=== PATIENT | male | born 1990 | race Caucasian/White ===

== ENCOUNTER 2019-08-24 03:46 | Emergency (ER) | payer OTHER, SELFPAY ==
[2019-08-24 03:56] VITALS: BP 130/93; PULSE 79; RESP 14; TEMP 36.2; O2SAT 98; BMI 26.6
--- NOTE | 2019-08-24 04:12 | ED.EPISTAXIS ---
HPI - Epistaxis General Chief complaint: Nasal Problem Stated complaint: nose bleed Time Seen by Provider: 08/24/19 04:11 Source: patient Mode of arrival: Family Vehicle History of Present Illness HPI Narrative: 29-year-old otherwise healthy gentleman presents with epistaxis for greater than an hour. Mostly out of the left nostril but enough that it is dripping down the back of his throat and leaking around the posterior septum and coming up the right side as well. He describes previous episodes for much of his life. Most of them have ended within 15-20 minutes. He has no reported hematologic abnormalities, hypertension or vascular abnormalities. Denies any recent colds, nasal irritation, increased ?picking? and denies any nasal irritants in the form of recreational drugs such as cocaine methamphetamine or heroin. Related Data Allergies Allergy/AdvReac Type Severity Reaction Status Date / Time amoxicillin Allergy Verified 08/24/19 03:55 Review of Systems Review of Systems Narrative: Pertinent positive and negative findings as per HPI Remainder of review of systems is otherwise unremarkable for Constitutional: Fevers, chills, weakness ENT: No sore throat, neck pain, ear pain CV: Chest pain, palpitations, dyspnea on exertion Respiratory: Cough, wheeze, dyspnea GI: Nausea, vomiting, diarrhea, change in bowel habits, black or bloody stools Heme: Easy bruising or bleeding Patient History Medical History (Updated 08/24/19 @ 05:02 by Gmea Zepeda MD) Epistaxis (Acute) Social History Smoking Status: Never smoker Smoking Status: Never smoker alcohol intake frequency: holidays/special occasions only Substance Use Type: does not use Exam Narrative Exam Narrative: General: Alert appropriate in no acute distress ENT: Crusting blood at the right nares. No obvious source of bleeding on exam. Oropharynx is unremarkable. Cardiac: Regular rate and rhythm no murmurs Respiratory: Able to speak in full sentences, no obvious respiratory distress, no wheezing no crackles Skin: No obvious rashes, warm and dry Neurologic: Grossly intact no obvious asymmetries or abnormalities Psych, appropriate insight and affect, cooperative Initial Vital Signs Initial Vital Signs: Vital Signs Temperature 97.2 F L 08/24/19 03:56 Pulse Rate 79 08/24/19 03:56 Respiratory Rate 14 08/24/19 03:56 Blood Pressure 130/93 H 08/24/19 03:56 Pulse Oximetry 98 08/24/19 03:56 Course Orders Ordered: Discontinued Medications Oxymetazoline HCl (Afrin) 2 sprays NASAL NOW ONE Stop: 08/24/19 04:16 Last Admin: 08/24/19 04:18 Dose: 2 sprays Documented by: BENJI Vital Signs Vital signs: Vital Signs - 8 hr 08/24/19 03:56 Temperature 97.2 F L Pulse Rate 79 Respiratory Rate 14 Blood Pressure 130/93 H Pulse Oximetry 98 MDM - Epistaxis MDM Narrative Medical decision making narrative: Uncomplicated epistaxis with no concerning risk factors. Has resolved with continued pressure. Patient is safe for home discharge Discharge Plan Departure Patient Disposition: Home Clinical Impression: Epistaxis Instructions: DI for Nosebleed Activity Restrictions/Additional Instructions: Thank you for coming in today Your nose bleed has stopped spontaneously. At this point there is no indication of significant pathology behind the nose bleeds such as a hematologic abnormality, vascular abnormality or severe hypertension. Should this happen again, it would be safe to use Afrin nose spray and nose clamps for a longer period at home and continues you will need to come to the emergency department. If you continue to have smaller nose bleeds it would be appropriate follow-up with ear nose and throat physicians to see if they have any suggestions for for venting future nosebleeds. In the meantime using any nasal lubricants such as nasal saline to keep the mucosal membranes moist will help avoid future difficulties with bleeding. I wish you the best. Welcome home from [facility].
[2019-08-24] MEDS: OXYMETAZOLINE NASAL SPRAY 30 ML 2 SPRAYS NASAL (04:18)
== END 2019-08-24 05:06 | disposition home or self-care (01) ==
PROVIDERS: Emergency Provider Emergency Medicine
DX: R04.0 Epistaxis (principal)
CPT/HCPCS: 99282; 99283

== ENCOUNTER 2020-06-26 07:58 | Emergency (ER) | payer OTHER, SELFPAY ==
[2020-06-26 08:07] VITALS: BP 128/83; PULSE 60; RESP 18; TEMP 36.5; O2SAT 98; BMI 26.6
--- NOTE | 2020-06-26 08:25 | PC.NURSE ---
c/o equilibrium being off intermittently
--- NOTE | 2020-06-26 08:39 | ED_ITS ---
HPI - Dizziness General Chief Complaint: Dizziness Stated Complaint: hot flashes/dizzy/nausea x2 days Time Seen by Provider: 06/26/20 08:12 Source: patient Mode of arrival: Family Vehicle Limitations: no limitations History of Present Illness HPI Narrative: Patient is a 30-year-old male who is the [employer] presenting with dizziness. He says the last 2 nights every time he lays down to go to sleep he is dizzy. Last night he was only able to lay on his right side. During the day however it resolves. He says yesterday he was even able to do a stimulation without any difficulty but last night he had hot flash sweats felt nauseous and was extremely dizzy. He was unable to find a comfortable position and go to sleep. He denies any chest pain palpitations or passing out. MD complaint: dizziness Timing: sudden onset Description: sense of movement Related Data Previous Rx's Medication Instructions Recorded meclizine 25 mg PO TID PRN #10 tab 06/26/20 Allergies Allergy/AdvReac Type Severity Reaction Status Date / Time amoxicillin Allergy Verified 08/24/19 03:55 Review of Systems Review of Systems Narrative: GENERAL: Denies chills, fatigue, malaise, fever, sweats, travel HEENT: Denies sinus pain, ear pain, sore throat, difficulty swallowing, neck pain RESPIRATORY: Denies dyspnea, cough, wheezing, hemoptysis, sputum. CARDIOVASCULAR: Denies chest pain, palpitations, orthopnea, edema GASTROINTESTINAL: Denies nausea, vomiting, abdominal pain, diarrhea, constipation, melena. : Denies dysuria, frequency, incontinence, hematuria, urinary retention, flank pain. MUSCULOSKELETAL: Denies weakness, joint pain, or bony pain SKIN: No rash, no erythema, no pruritus NEUROLOGIC: See HPI PSYCHIATRIC: No concerning psychosocial issues. 12 point review of systems is negative except for those stated above and HPI Patient History Medical History Epistaxis Social History Smoking Status: Never smoker Smoking Status: Never smoker alcohol intake frequency: holidays/special occasions only Substance Use Type: does not use Exam Initial Vital Signs Initial Vital Signs: Vital Signs Temperature 97.7 F 06/26/20 08:07 Pulse Rate 60 06/26/20 08:07 Respiratory Rate 18 06/26/20 08:07 Blood Pressure 128/83 06/26/20 08:07 Pulse Oximetry 98 06/26/20 08:07 GENERAL: Well-appearing, well-nourished and in no acute distress. HEENT: Head atraumatic,EOMI, pupils reactive, face symmetric, moist mucous membranes CARDIOVASCULAR: Regular rate and rhythm without murmurs, rubs or gallops. RESPIRATORY: Breath sounds equal bilaterally, no wheezes rales or rhonchi. ABDOMEN: Soft, nontender. Normoactive bowel sounds all 4 quadrants. No guarding or rebound. EXTREMITIES: Normal range of motion, no clubbing or edema. Neurovascularly intact NEUROLOGICAL: Alert and oriented x4.Normal gait and speech. Cranial nerves II through XII grossly intact. Good [id number], good [id number], strength equal bilaterally, no dysarthria or aphasia, sensation in tact to soft touch bilaterally, no visual changes, no facial droop SKIN: Warm, dry, no laceration, no petechiae, no rashes or lesions. Scores NIH Stroke Scale Level of Conciousness: Alert, keenly responsive Ask month/age: Answers both questions correctly. Open/close eyes, close hand: Performs both tasks correctly Best gaze horizontal: Normal Visual bates: No visual loss Facial palsy: Normal symetrical movement Left arm drift: No drift for full 10 sec Right arm drift: No drift for full 10 sec Left leg drift: No drift for full 5 sec Right leg drift: No drift for full 5 sec Limb ataxia: Absent Sensory on face/arms/legs: Normal, no sensory loss Best language: No aphasia, normal Dysarthria: Normal Extinction or inattention: No abnormality Total NIH Stroke scale score: 0 Course Orders Ordered: ED Orders 06/26/20 08:39 EKG-12 Lead Stat 06/26/20 08:55 Complete Blood Count AUTO DIFF Stat Comprehensive Metabolic Panel Stat Vital Signs Vital signs: Vital Signs - 8 hr 06/26/20 08:07 06/26/20 09:45 Temperature 97.7 F Pulse Rate 60 58 L Respiratory Rate 18 18 Blood Pressure 128/83 124/84 Pulse Oximetry 98 99 MDM - Dizziness Lab Data Attestation: I reviewed the patient's lab results. Result diagrams: 06/26/20 08:55 06/26/20 08:55 Labs: Lab Results 06/26/20 06/26/20 Range/Units 08:55 08:55 WBC 5.2 (4.5-11.0) X10^3/uL RBC 5.04 (4.5-5.9) X10^6/uL Hgb 15.6 (13.5-17.5) g/dL Hct 44.2 (41-53) % MCV 87.8 (80-100) fL MCH 30.9 (26-34) PG MCHC 35.2 (30-36) % RDW 13.3 (11.6-14.8) % Plt Count 211 (150-400) X10^3/uL Neut % (Auto) 55.5 (50-75) % Lymph % (Auto) 32.0 (25-40) % Benton % (Auto) 5.3 (3-14) % Eos % (Auto) 6.6 H (2-4) % Baso % (Auto) 0.6 (0-2) % Neut # (Auto) 2900 (8162-9551) /uL Lymph # (Auto) 1700 (1180-3617) /uL Benton # (Auto) 300 (0-900) /uL Eos # (Auto) 300 (0-450) /uL Baso # (Auto) 0 (0-100) /uL Sodium 139 (137-145) mmol/L Potassium 4.6 (3.4-5.1) mmol/L Chloride 100 (98-107) mmol/L Carbon Dioxide 31 (22-32) mmol/L BUN 12 (9-20) mg/dL Creatinine 0.78 (0.66-1.25) mg/dL Estimated GFR > 60.0 (>60) mL/min BUN/Creatinine Ratio 15.4 (6-22) Glucose 97 (70-100) mg/dL Calcium 9.9 (8.4-10.2) mg/dL Total Bilirubin 1.9 H (0.2-1.3) mg/dL AST 26 (17-59) IU/L ALT 23 (<50) IU/L Alkaline Phosphatase 74 (38-126) U/L Total Protein 8.0 (6.3-8.2) g/dL Albumin 4.8 (3.5-5.0) g/dL Globulin 3.2 (1.7-4.1) g/dL Albumin/Globulin Ratio 1.5 (1.0-2.8) ECG Data Attestation: I personally reviewed and interpreted this ECG as follows: Prior ECG tracings: not available for review Interpretation: Normal sinus rhythm rate 51 p.r. interval 170 QRS [address] changes no T-wave inversions MDM Narrative Medical decision making narrative: Patient clinically has benign paroxysmal positional vertigo. His symptoms have overall resolved. Will give him prescription for meclizine. Blood work and EKG are overall reassuring. Discharge Plan Departure Patient Disposition: Home Clinical Impression: Benign paroxysmal positional vertigo Qualifiers: Laterality: unspecified laterality Qualified Code(s): H81.10 - Benign paroxysmal vertigo, unspecified ear Instructions: Benign Paroxysmal Positional Vertigo Activity Restrictions/Additional Instructions: *You have been diagnosed with benign paroxysmal positional vertigo *What to do: This should hopefully resolve on its. At this time no imaging is indicated. *Continue to take medications as directed Meclizine 25 mg every every 8 hours if needed for dizziness. If you are dizzy and night recommend taking at nighttime before bed. It can cause drowsiness do not fly or drive while taking *Follow up with your primary care provider in 2-3 days *Return to ER if you should have persistent dizziness, persistent nausea or vomiting weakness [or] any new, worsening or concerning symptoms Prescriptions: New meclizine 25 mg tablet 25 mg PO TID PRN (Reason: dizziness) Qty: 10 RF: 0 Referrals: Rolan Santos [Primary Care Provider] -
[2020-06-26 09:01] LABS: Add Manual Diff / Slide Review NO; Basophils Absolute Auto 0 /uL (0-100); Basophils Percent Auto 0.6 % (0-2); Eosinophils Absolute Auto 300 /uL (0-450); Eosinophils Percent Auto 6.6 % (2-4); Hematocrit 44.2 % (41-53); Hemoglobin 15.6 g/dL (13.5-17.5); Lymphocytes Absolute Auto 1700 /uL (1100-4500); Mean Corpuscular HGB Conc 35.2 % (30-36); Mean Corpuscular Hemoglobin 30.9 PG (26-34); Mean Corpuscular Volume 87.8 fL (80-100); Monocytes Absolute Auto 300 /uL (0-900); Monocytes Percent Auto 5.3 % (3-14); Neutrophils Absolute Auto 2900 /uL (1500-7000); Neutrophils Percent Auto 55.5 % (50-75); Platelet Count 211 X10^3/uL (150-400); Red Blood Cell Count 5.04 X10^6/uL (4.5-5.9); Red Cell Distribution Width 13.3 % (11.6-14.8); White Blood Cell Count 5.2 X10^3/uL (4.5-11.0)
[2020-06-26 09:15] LABS: Alanine Aminotransferase 23 IU/L (<50); Albumin 4.8 g/dL (3.5-5.0); Albumin Globulin Ratio 1.5 (1.0-2.8); Alkaline Phosphatase 74 U/L (38-126); Aspartate Aminotransferase 26 IU/L (17-59); BUN Creatinine Ratio 15.4 (6-22); Bilirubin Total 1.9 mg/dL (0.2-1.3); Blood Urea Nitrogen 12 mg/dL (9-20); Calcium 9.9 mg/dL (8.4-10.2); Carbon Dioxide 31 mmol/L (22-32); Chloride 100 mmol/L (98-107); Estimated Glomerular Filt Rate > 60.0 mL/min (>60); Globulin 3.2 g/dL (1.7-4.1); Glucose 97 mg/dL (70-100); HEMOLYSIS < 15 (0-50); Potassium 4.6 mmol/L (3.4-5.1); Sodium 139 mmol/L (137-145)
[2020-06-26 09:45] VITALS: BP 124/84; PULSE 58; RESP 18; O2SAT 99
== END 2020-06-26 09:46 | disposition home or self-care (01) ==
PROVIDERS: Emergency Provider Emergency Medicine; PCP Student in an Organized Health Care Education/Training Program
DX: H81.10 Benign paroxysmal vertigo, unspecified ear (principal); R11.0 Nausea
CPT/HCPCS: 36415; 80053; 85025; 93005; 93010; 99282; 99284